=== PATIENT | female | born 1930 | race Caucasian/White ===

== ENCOUNTER 2016-11-21 10:26 | Emergency (ER) | payer OTHER ==
[~2016-11-21] VITALS: Ht 162.6 cm; Wt 49.9 kg
[2016-11-21] MEDS ORDERED: Ketorolac 30mg Inj IV ONE (10:45)
[2016-11-21 13:14] LABS: BASOPHILS % (AUTO) 1.2 % (0.0-2.0); EOSINOPHILS % (AUTO) 16.3 % (0.0-3.0); LYMPHOCYTES % (AUTO) 25.9 % (20.0-45.0); MEAN CORPUSCULAR HEMOGLOBIN 28.5 PG (27.0-31.0); MEAN CORPUSCULAR HGB CONC 31.6 G/DL (32.0-36.0); MEAN CORPUSCULAR VOLUME 90 FL (80-99); MEAN PLATELET VOLUME 7.8 FL (6.5-10.1); MONOCYTES % (AUTO) 6.6 % (1.0-10.0); PLATELET COUNT 209 K/UL (150-450); RED BLOOD COUNT 4.95 M/UL (4.20-5.40); RED CELL DISTRIBUTION WIDTH 13.9 % (11.6-14.8); WHITE BLOOD COUNT 8.9 K/UL (4.8-10.8)
[2016-11-21 13:21] LABS: PROTHROMBIN TIME 9.8 SEC (9.30-11.50)
[2016-11-21 13:25] LABS: TROPONIN I < 0.30 ng/mL (<=0.30)
[2016-11-21 13:27] LABS: ALANINE AMINOTRANSFERASE 9 U/L (3-33); ALBUMIN/GLOBULIN RATIO 1.2 (1.0-2.7); ANION GAP 13 (5-15); ASPARTATE AMINO TRANSFERASE 24 U/L (5-40); CARBON DIOXIDE 30 mEQ/L (20-30); CHLORIDE 101 mEQ/L (98-107); HEMOLYSIS 95; POTASSIUM 5.2 mEQ/L (3.4-4.9); SODIUM 144 mEQ/L (135-145); TOTAL PROTEIN 7.3 g/dL (6.6-8.7)
[2016-11-21 13:37] LABS: APPEARANCE,URINE CLEAR; KETONES,URINE NEGATIVE (NEGATIVE); LEUKOCYTE ESTERASE ,URINE 1+ (NEGATIVE); NITRITE,URINE NEGATIVE (NEGATIVE); PH,URINE 6 (4.5-8.0); PROTEIN,URINE 3+ (NEGATIVE); UROBILINOGEN,URINE NORMAL MG/DL (0.0-1.0)
[2016-11-21 13:37] LABS: CKMB 1.6 ng/mL (< 3.8)
--- NOTE | 2016-11-21 13:42 | Emergency Room Report ---
History of Present Illness General Chief Complaint: Lower Extremity Injury Source: Family Member, EMS Present Illness HPI Patient presents with family for reports of multiple falls in the recent past Patient recently about 2 months ago had surgery on left hip from [place] the patient [place] She has had several falls again There was a question of lightheadedness and possible syncope with this Patient herself denies any loss of consciousness Family is concerned about the patient's multiple falls continued pain to the left hip The field of the has been no other continuing rehabilitation Allergies: Coded Allergies: No Known Allergies (Unverified , 11/21/16) Patient History Past Medical History: see triage record Pertinent Family History: none Reviewed Nursing Documentation: PMH: Agreed, PSxH: Agreed Nursing Documentation-PMH Hx Cardiac Problems: Yes - CAGB, high cholesterol Hx Hypertension: Yes Review of Systems All Other Systems: negative except mentioned in HPI Physical Exam Vital Signs Date Time Temp Pulse Resp B/P Pulse Ox O2 Delivery O2 Flow Rate FiO2 11/21/16 10:30 98.4 57 16 149/73 96 Room Air Sp02 EP Interpretation: reviewed, normal General Appearance: well appearing, no apparent distress Head: normocephalic, atraumatic Eyes: bilateral eye EOMI, bilateral eye PERRL ENT: hearing grossly normal, normal pharynx, TMs + canals normal, uvula midline Neck: full range of motion, supple, no meningismus, no bony tend Respiratory: lungs clear, normal breath sounds, no rhonchi, no respiratory distress, no retraction, no accessory muscle use Cardiovascular #1: normal peripheral pulses, regular rate, rhythm, no edema, no gallop, no JVD, no murmur Gastrointestinal: normal bowel sounds, non tender, soft, no mass, no organomegaly, non-distended, no guarding, no hernia, no pulsatile mass, no rebound Genitourinary: no CVA tenderness Musculoskeletal: other - Tender on palpation of the left hip, however was able to ambulate to the emergency room Neurologic: oriented x3, responsive, sensory intact, other - Weak on her left lower extremity Psychiatric: mood/affect normal Skin: normal color, no rash, warm/dry, palpation normal Lymphatic: normal inspection, no adenopathy Medical Decision Making Diagnostic Impression: Primary Impression: Multiple falls Additional Impressions: Hip pain Dehydration Weakness ER Course Patient is a fairly complex patient with multiple differential to consideration including but not limited to cardiac cardiopulmonary and vascular emergencies Patient's imaging studies do not show any obvious acute pathology Patient has baseline blood work obtained given the multiple falls and the patient's concerns patient requested for further inpatient care Physical therapy and rehabilitation as needed Secondary to insurance purposes patient requires transport Labs Test 11/21/16 12:58 11/21/16 13:03 White Blood Count 8.9 K/UL (4.8-10.8) Red Blood Count 4.95 M/UL (4.20-5.40) Hemoglobin 14.1 G/DL (12.0-16.0) Hematocrit 44.7 % (37.0-47.0) Mean Corpuscular Volume 90 FL (80-99) Mean Corpuscular Hemoglobin 28.5 PG (27.0-31.0) Mean Corpuscular Hemoglobin Concent 31.6 G/DL (32.0-36.0) Red Cell Distribution Width 13.9 % (11.6-14.8) Platelet Count 209 K/UL (150-450) Mean Platelet Volume 7.8 FL (6.5-10.1) Neutrophils (%) (Auto) 50.0 % (45.0-75.0) Lymphocytes (%) (Auto) 25.9 % (20.0-45.0) Monocytes (%) (Auto) 6.6 % (1.0-10.0) Eosinophils (%) (Auto) 16.3 % (0.0-3.0) Basophils (%) (Auto) 1.2 % (0.0-2.0) Prothrombin Time 9.8 SEC (9.30-11.50) Prothromb Time International Ratio 1.0 (0.9-1.1) Activated Partial Thromboplast Time 25 SEC (23-33) Sodium Level 144 mEQ/L (135-145) Potassium Level 5.2 mEQ/L (3.4-4.9) Chloride Level 101 mEQ/L (98-107) Carbon Dioxide Level 30 mEQ/L (20-30) Anion Gap 13 (5-15) Blood Urea Nitrogen 35 mg/dL (7-23) Creatinine 2.0 mg/dL (0.5-0.9) Estimat Glomerular Filtration Rate mL/min (>60) Glucose Level 91 mg/dL (74-106) Calcium Level 10.0 mg/dL (8.6-10.2) Total Bilirubin 0.2 mg/dL (0.0-1.2) Aspartate Amino Transf (AST/SGOT) 24 U/L (5-40) Alanine Aminotransferase (ALT/SGPT) 9 U/L (3-33) Alkaline Phosphatase 53 U/L (35-104) Total Creatine Kinase 44 U/L (26-140) Creatine Kinase MB 1.6 ng/mL (< 3.8) Creatine Kinase MB Relative Index 3.6 Troponin I < 0.30 ng/mL (<=0.30) Total Protein 7.3 g/dL (6.6-8.7) Albumin 4.0 g/dL (3.5-5.2) Globulin 3.3 g/dL Albumin/Globulin Ratio 1.2 (1.0-2.7) Urine Color Pale yellow Urine Appearance Clear Urine pH 6 (4.5-8.0) Urine Specific [place] 1.010 (1.005-1.035) Urine Protein 3+ (NEGATIVE) Urine Glucose (UA) Negative (NEGATIVE) Urine Ketones Negative (NEGATIVE) Urine Occult Blood Negative (NEGATIVE) Urine Nitrite Negative (NEGATIVE) Urine Bilirubin Negative (NEGATIVE) Urine Urobilinogen Normal MG/DL (0.0-1.0) Urine Leukocyte Esterase 1+ (NEGATIVE) Urine RBC 0-2 /HPF (0 - 2) Urine WBC 2-4 /HPF (0 - 2) Urine Squamous Epithelial Cells Occasional /LPF Urine Bacteria None /HPF (NONE) EKG Diagnostic Results Rate: normal Rhythm: NSR ST Segments: no acute changes Rhythm Strip Diag. Results EP Interpretation: yes Rate: 67 Rhythm: NSR, no PVC's, no ectopy Chest X-Ray Diagnostic Results EP Interpretation: Yes Findings: no consolidation, no effusion, no pneumothorax Number of Views: 1 Other X-Ray Diagnostic Results Other X-Ray Diagnostic Results #1: EP Interpretation: Yes Findings: no fractures, no dislocation, no soft tissue swelling Number of Views: 3 - right hip Other X-Ray Diagnostic Results #2: EP Interpretation: Yes Findings: no fractures, no dislocation, no soft tissue swelling Number of Views: 3 - left hip Last Vital Signs Date Time Temp Pulse Resp B/P Pulse Ox O2 Delivery O2 Flow Rate FiO2 11/21/16 10:30 98.4 57 16 149/73 96 Room Air Status: improved Disposition: XFER SHT-TRM HOSP Condition: Improved Referrals: [facility] (PCP) CRISTOFER MANNING D.O. Nov 21, 2016 13:42
--- NOTE | 2016-11-21 13:54 | Diagnostic Imaging Report ---
Indications: hip pain Findings: Two views of the right hip were obtained. No acute fracture is demonstrated. Alignment of the hip is within normal limits. Soft tissues are unremarkable. Bones are osteopenic. Extensive calcification of the femoral artery noted. Impression: No acute injury identified
--- NOTE | 2016-11-21 13:54 | Diagnostic Imaging Report ---
Indication: Chest Pain Comparison: None A single view chest radiograph was obtained. Findings: The left hemidiaphragm is elevated. The heart is enlarged. Sternotomy is noted. Aorta is moderately calcified. Bones are osteopenic. Impression: Elevated left hemidiaphragm
--- NOTE | 2016-11-21 13:55 | Diagnostic Imaging Report ---
Indications: hip pain Findings: Two views of the left hip were obtained. No acute fracture is identified. 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 Bones are osteopenic. Vascular calcifications are present. Impression: No acute injury
[2016-11-21 13:56] LABS: RBC,URINE 0-2 /HPF (0 - 2); SQUAMOUS EPITHELIAL CELL,UR OCCASIONAL /LPF (NONE/OCC)
[2016-11-21 14:03] VITALS: BP 130/80
[2016-11-21 14:30] VITALS: BP 170/88
[2016-11-21] MEDS ORDERED: HydrALAZINE 25mg tab ORAL ONE (14:30)
== END 2016-11-21 14:45 | disposition short-term general hospital (02) ==
LOC: EMR 11:51
DX: M25.552 Pain in left hip (principal); Z91.81 History of falling; E86.0 Dehydration; R53.1 Weakness; I10 Essential (primary) hypertension; Z95.1 Presence of aortocoronary bypass graft; E78.00 Pure hypercholesterolemia, unspecified
CPT/HCPCS: 36415; 71010; 73502; 80053; 81003; 82550; 82553; 84484; 85025; 85610; 85730; 96360; 99284; J7040